=== PATIENT | male | born 2000 | race Caucasian/White ===

== ENCOUNTER 2019-06-30 10:13 | Emergency (ER) | payer SELFPAY ==
[~2019-06-30] VITALS: Ht 182.9 cm; Wt 77.1 kg
[2019-06-30] MEDS ORDERED: fentaNYL PF VIAL 100 MCG/2 ML VIAL IM ONE ×2 (10:30→12:45)
[2019-06-30] MEDS ORDERED: LIDOCAINE 1% PF 2 ML VIAL. INJ ONE (10:30)
[2019-06-30] MEDS ORDERED: LIDOCAINE 1% Multi-Dose 20 ML VIAL. ONE (10:36)
--- NOTE | 2019-06-30 10:56 | RAD ---
HAND LEFT 3V 06/30/2019 10:27 AM INDICATION: Injury COMPARISON: None available. TECHNIQUE: 3 views the left hand are provided. FINDINGS/ IMPRESSION: There is no acute fracture or dislocation. Joint spaces are maintained. Bone mineralization is within normal limits. Regional soft tissues are within normal limits. There is no soft tissue gas or osseous erosion. No radiopaque foreign body. Electronically signed by: Jolanta Taylor MD (06/30/2019 10:53 AM) [id number]
[2019-06-30] MEDS ORDERED: LIDOCAINE 1% Multi-Dose 20 ML VIAL. INJ ONE ×2 (11:00→12:30)
[2019-06-30 12:30] VITALS: BP 104/69
[2019-06-30] MEDS ORDERED: CEPH-264 PO (13:05)
[2019-06-30] MEDS ORDERED: NAPR-683 PO (13:05)
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
== END 2019-06-30 13:22 | disposition home or self-care (01) ==
LOC: ER 10:13
DX: S61.412A Laceration without foreign body of left hand, initial encounter (principal); Z98.890 Other specified postprocedural states; Z91.010 Allergy to peanuts; Z91.040 Latex allergy status; Z88.8 Allergy status to other drugs, medicaments and biological substances; Z79.899 Other long term (current) drug therapy; W25.XXXA Contact with sharp glass, initial encounter; Y93.21 Activity, ice skating; Y92.89 Other specified places as the place of occurrence of the external cause; Y99.8 Other external cause status
CPT/HCPCS: 12042; 73130; 96372; 99285; J3010